=== PATIENT | female | born 1950 | race Caucasian/White ===

== ENCOUNTER 2020-01-11 17:14 | Emergency (ER) | payer MEDICARE, OTHER ==
[2020-01-11] MEDS ORDERED: Aspirin 81 MG Tab.Chew PO ONE (17:45)
[2020-01-11] MEDS: Aspirin 81 MG Tab.Chew ONE (17:45)
--- NOTE | 2020-01-11 18:10 | EDM.PDOC ---
ED HPI GENERAL MEDICAL PROBLEM - General Chief Complaint: Chest Pain Stated Complaint: CHEST PAIN Time Seen by Provider: 01/11/20 17:45 Source of Information: Reports: Patient History Limitations: Reports: No Limitations - History of Present Illness INITIAL COMMENTS - FREE TEXT/NARRATIVE: 69-year-old female presents emergency room for evaluation of chest pain. Onset of symptoms was approximately 24 hours ago. Pain began at rest. She reports the pain as sharp just to the left side of her chest and radiates to her shoulder blade. She denies any arm pain or numbness or tingling. She denies shortness of breath she denies any dyspnea, dyspnea on exertion or diaphoresis. She denies any neck pain, no nausea or vomiting or abdominal complaints. She does have a history of diabetes insulin-dependent since the age of 48 she also has a history coronary artery disease with a bypass graft 3 vessel in August 2015. She has had some previous claudication complaints in the past which is been further worked up for peripheral vascular disease which was negative. She is a pack-a-day smoker 50-60 pack year smoker. He takes a cholesterol medication and hypertension medication. Her symptoms have not worsened over the last 24 hours. She rates the pain 5 out of 10. She is not requesting medication for the pain in fact refuses anything. Her EKG showed a normal sinus rhythm with possible anterior septal infarct age indeterminate there is no ST elevation. Onset Date: 01/10/20 Onset Time: 20:00 Duration: Hour(s):, Constant Location: Reports: Chest Quality: Reports: Sharp Severity: Moderate Improves with: Reports: None Worsens with: Reports: None Associated Symptoms: Reports: Chest Pain. 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 Left Chest Pain Score (Numeric/FACES): 5 - Related Data Allergies Allergy/AdvReac Type Severity Reaction Status Date / Time ibuprofen [From Motrin IB] Allergy Hives Verified 01/11/20 17:22 triamcinolone acetonide Allergy Blisters Verified 01/11/20 17:22 [From Kenalog] metals Allergy SKIN Uncoded 01/11/20 17:22 BREAKDOWN Home Meds: Home Meds Arginine [l-Arginine] 500 mg PO DAILY 08/20/13 [History] Aspirin [Adult Low Dose Aspirin EC] 81 mg PO DAILY 08/20/13 [History] Calcium Carb & Citrate/Vit D3 [Calcium + Vitamin D3 Caplet] 2 each PO DAILY 08/20/13 [History] Cyclobenzaprine [Flexeril] 20 mg PO BEDTIME 08/20/13 [History] Docusate Sodium 2 cap PO DAILY 08/20/13 [History] Insulin Glargine,Hum.Rec.Anlog [Lantus Solostar] 10 units SUBCUT BID 08/20/13 [History] Insulin Lispro [Humalog] SUBCUT ASDIRECTED 08/20/13 [History] Insulin Regular, Human [HumuLIN R] 3 units SUBCUT DAILY 08/20/13 [History] Lactobacillus Acidophilus [Acidophilus Lactobacillus] 1 cap PO DAILY 08/20/13 [History] Melatonin/Pyridoxine HCl (B6) [Melatonin 10 mg Tablet] 20 mg PO BEDTIME 08/20/13 [History] Multivit-Min/FA/Lycopen/Lutein [Certavite Sr-Antioxidant Tab] 1 tab PO DAILY 08/20/13 [History] atorvaSTATin [Lipitor] 20 mg PO BEDTIME 08/20/13 [History] Aspirin/Calcium Carbonate/Mag [Aspirin Buffered 325 MG Tablet] 325 mg PO QAM 01/11/20 [History] Biotin 1,000 mcg PO DAILY 01/11/20 [History] ED ROS GENERAL - Review of Systems Review Of Systems: See Below Constitutional: Denies: Fever, Night Sweats, Diaphoresis HEENT: Reports: No Symptoms Respiratory: Denies: Shortness of Breath, Wheezing, Pleuritic Chest Pain Cardiovascular: Reports: Chest Pain. Denies: Dyspnea on Exertion, Palpitations Endocrine: Reports: High Glucose GI/Abdominal: Reports: No Symptoms : Reports: No Symptoms Musculoskeletal: Reports: Shoulder Pain (left shoulder) Skin: Reports: No Symptoms Neurological: Reports: No Symptoms Psychiatric: Reports: No Symptoms Hematologic/Lymphatic: Reports: No Symptoms Immunologic: Reports: No Symptoms ED EXAM, GENERAL - Physical Exam Exam: See Below Exam Limited By: No Limitations General Appearance: Alert, No Apparent Distress, Thin Eye Exam: Bilateral Eye: EOMI, PERRL (Pupils equal) Ears: Hearing Grossly Normal Throat/Mouth: Normal Inspection, Normal Oropharynx, Normal Voice, No Airway Compromise Head: Atraumatic, Normocephalic Neck: Normal Inspection, Supple, Non-Tender, Full Range of Motion Respiratory/Chest: No Respiratory Distress, Lungs Clear, Normal Breath Sounds Cardiovascular: Normal Peripheral Pulses, Regular Rate, Rhythm Peripheral Pulses: 1+: Carotid (L), Carotid (R), Radial (L), Radial (R), Dorsalis Pedis (L), Dorsalis Pedis (R) GI/Abdominal: Soft, Non-Tender Back Exam: Normal Inspection, Full Range of Motion Extremities: Normal Inspection, Normal Range of Motion, No Pedal Edema Neurological: Alert, Oriented, No Motor/Sensory Deficits Psychiatric: Normal Affect, Normal Mood Skin Exam: Warm, Dry, Intact, Normal Color, No Rash Lymphatic: No Adenopathy EKG INTERPRETATION EKG Date: 01/11/20 Time: 17:25 Rhythm: NSR Rate (Beats/Min): 89 [place]: Normal P-Wave: Present QRS: Normal ST-T: Normal QT: Normal Comparison: NA - No Prior EKG EKG Interpretation Comments: Normal sinus rhythm possible left atrial enlargement Anteroseptal infarct, age undetermined Abnormal ECG Course - Vital Signs Last Recorded V/S: Last Vital Signs Temp 98.9 F 01/11/20 17:18 Pulse 79 01/11/20 18:10 Resp 18 01/11/20 17:18 BP 186/70 H 01/11/20 18:10 Pulse Ox 96 01/11/20 17:18 - Orders/Labs/Meds Orders: Active Orders 24 hr Category Date Time Status Chest 1V Frontal [CR] Routine Exams 01/11/20 17:30 Ordered Labs: Laboratory Tests 01/11/20 01/11/20 Range/Units 17:40 17:40 WBC 7.41 (5.00-10.00) 10^3/uL RBC 4.49 (3.80-5.50) 10^6/uL Hgb 13.8 (12.0-16.0) g/dL Hct 41.7 (37.0-47.0) % MCV 92.9 H (82.0-92.0) fL MCH 30.7 (27.0-31.0) pg MCHC 33.1 (32.0-36.0) g/dL RDW 13.7 (11.5-14.5) % Plt Count 356 D (150-400) 10^3/uL MPV 10.1 (7.4-10.4) fL Immature Gran % (Auto) 0.1 (0.0-5.0) % Neut % (Auto) 65.4 (50.0-70.0) % Lymph % (Auto) 21.7 (20.0-40.0) % [place] % (Auto) 10.3 H (2.0-8.0) % Eos % (Auto) 1.8 (1.0-3.0) % Baso % (Auto) 0.7 (0.0-1.0) % Neut # (Auto) 4.85 (2.50-7.00) 10^3/uL Lymph # (Auto) 1.61 (1.00-4.00) 10^3/uL [place] # (Auto) 0.76 (0.10-0.80) 10^3/uL Eos # (Auto) 0.13 (0.10-0.30) 10^3/uL Baso # (Auto) 0.05 (0.00-0.10) 10^3/uL Immature Gran # (Auto) 0.01 (0.00-0.50) 10^3/uL Sodium 136 (136-145) mmol/L Potassium 4.4 (3.3-5.3) mmol/L Chloride 100 (98-115) mmol/L Carbon Dioxide 27.3 (21.0-32.0) mmol/L Anion Gap 13.1 (5-15) mmol/L BUN 15 (6-25) mg/dL Creatinine 0.90 (0.51-1.17) mg/dL Est Cr Clr Drug Dosing 55.75 mL/min Estimated GFR (MDRD) > 60 mL/min Glucose 193 H (75 - 99) mg/dL Calcium 8.6 L (8.7-10.3) mg/dL Troponin I 0.06 (0.00-0.070) ng/mL Meds: Medications Discontinued Medications Generic Name Dose Route Start Last Admin Trade Name Freq PRN Reason Stop Dose Admin Aspirin Confirm 01/11/20 17:45 01/11/20 17:45 Aspirin Administered 01/11/20 17:46 324 mg Dose Administration 324 mg .ROUTE .STK-MED ONE - Re-Assessments/Exams Free Text/Narrative Re-Assessment/Exam: 01/11/20 18:14 Patient states that she is comfortable. O2 saturations are stable. She denies need for any pain medication. She is nontoxic appearing, she is not diaphoretic Departure - Departure Time of Disposition: 18:36 Disposition: Home, Self-Care 01 Condition: Good Clinical Impression: Nonspecific chest pain, Intercostal muscle pain Instructions: Nonspecific Chest Pain, Adult Referrals: Leroy Rivera [employer] SPECIALIST [Primary Care Provider] - Forms: ED Department Discharge Sepsis Event Note (ED) - Evaluation Sepsis Screening Result: No Definite Risk - Focused Exam Vital Signs: Vital Signs Temp Pulse Resp BP Pulse Ox 01/11/20 18:10 79 186/70 H 01/11/20 17:50 81 177/68 H 01/11/20 17:30 82 176/85 H 01/11/20 17:18 98.9 F 96 18 217/82 H 96 - My Orders Last 24 Hours: My Active Orders 01/11/20 17:30 Chest 1V Frontal [CR] Routine - Assessment/Plan Last 24 Hours: My Active Orders 01/11/20 17:30 Chest 1V Frontal [CR] Routine Assessment:: Nonspecific chest pain, negative cardiac troponin Possible intercostal muscle strain History of coronary artery disease status post three-vessel CABG bypass Insulin-dependent type 2 diabetes. Tobacco dependence Plan: Follow-up with your primary care within 72 hours Return to the emergency room if chest pain worsens, diaphoresis,Shortness of breath, neck pain, nausea vomiting or abdominal pain occur. Resume as instructed.
[2020-01-11 18:22] LABS: ANION GAP 13.1 mmol/L (5-15); CHLORIDE,CL 100 mmol/L (98-115); SODIUM,NA 136 mmol/L (136-145)
--- NOTE | 2020-01-11 18:41 | CR ---
[id number] RAD/RAD Chest PA or AP 1V EXAM: RAD Chest PA or AP 1V INDICATION: CHEST PAIN. COMPARISON: Chest CT from 2009. DISCUSSION: Cardiomediastinal silhouette is normal in size and contour. Bilateral symmetric lung hyperinflation, nonspecific. No infiltrate, effusion, pneumothorax, or edema. Median sternotomy. IMPRESSION: No acute findings. Other findings are described above. Kirt Cherry MD 01/11/20 [id number] Thank you for allowing us to participate in the care of your patient.
== END 2020-01-11 18:45 | disposition home or self-care (01) ==
LOC: KA.ED 17:14
DX: R07.82 Intercostal pain (principal); M25.512 Pain in left shoulder; Z88.6 Allergy status to analgesic agent; Z91.048 Other nonmedicinal substance allergy status; Z79.82 Long term (current) use of aspirin; Z79.899 Other long term (current) drug therapy
CPT/HCPCS: 71045; 80048; 84484; 85025; 93005; 99285; A9270; 99284

== ENCOUNTER 2020-08-21 06:30 | Day surgery (SDC) | payer MEDICARE, OTHER ==
[2020-08-21] MEDS: Glucagon,Human Recombinant 1 MG Vial IM ONE (06:30)
[2020-08-21] MEDS ORDERED: Midazolam 1 MG/ML 2 ML SDV IV ONE (06:31)
[2020-08-21] MEDS ORDERED: Propofol 200 MG/20 ML SDV IV ONE (06:31)
[2020-08-21] MEDS: Dextrose 5%-0.45% NaCl 1,000 ML IV SCH (06:50)
[2020-08-21] MEDS ORDERED: Sodium Chloride 0.9% 10 ML Syringe FLUSH PRN (07:00)
[2020-08-21] MEDS ORDERED: Propofol 200 MG/20 ML SDV ONE (07:49)
[2020-08-21] MEDS ORDERED: Midazolam 1 MG/ML 2 ML SDV ONE (07:49)
[2020-08-21] MEDS: Sodium Chloride 0.9% 1,000 ML IV SCH (08:00)
--- NOTE | 2020-08-21 09:10 | PCM.PRNOTE ---
- Free Text/Narrative Note: PROCEDURE PERFORMED: Colonoscopy with biopsy PRE-PROCEDURE DIAGNOSIS/INDICATION FOR PROCEDURE: Rectal bleeding, change in bowel movements with recurrent diarrhea, last colonoscopy 2013 normal CONSENT: Informed consent was obtained prior to the procedure after discussion of the risks (including pain, bleeding, infection, perforation, missed polyps, inability to completely remove polyps or complete procedure necessitating repeat colonoscopy, adverse reaction to anesthesia, cardiovascular event), benefits and alternatives and expected outcomes. The patient expressed understanding and wished to proceed. Verbal consent given and consent form signed. PROCEDURAL PAUSE: Completed SEDATION: Per anesthesia DESCRIPTION OF PROCEDURE: Patient was placed in the left lateral decubitus position. After adequate sedation and anesthetic was administered, a rectal exam was performed revealing no abnormalities. A lubricated Olympus Video Colonoscope was inserted into the rectum and air insufflation was performed. The colonoscope was advanced through the rectum, sigmoid, descending, transverse, and ascending colon without difficulties. The cecum was reached and the ileocecal valve as well as the appendiceal orifice were identified and pictorially documented. After adequate visualization of the cecum, the scope was withdrawn, giving 360-degree views of the colonic mucosa and retroflexion was performed in the rectum with the following findings noted: Ileocecal valve: Normal Cecum: Normal Ascending colon: Normal Hepatic flexure: Normal Transverse colon: Normal Splenic flexure: Normal Descending colon: Normal Sigmoid colon: Normal Rectum: Mild internal hemorrhoids without active bleeding Random biopsies taken of the ascending and descending colon to further evaluate recurrent diarrhea. The scope was straightened, air suction performed, and the scope withdrawn without complication. Preparation adequacy [place] Bowel Score 9/9. IMPRESSION: Colonoscopy performed revealing: - No mucosal abnormalities, but biopsies taken of ascending and descending colon to evaluate for microscopic colitis, pathology now pending - Mild internal hemorrhoids PLAN: Follow-up with myself at [facility] in 7-10 days to discuss biopsy results and further evaluation and management of bowel changes.
== END 2020-08-21 10:02 | disposition home or self-care (01) ==
LOC: KA.SDS 06:30
PROVIDERS: ATTEND Family Medicine
DX: R19.7 Diarrhea, unspecified (principal); K64.8 Other hemorrhoids; I10 Essential (primary) hypertension; I25.10 Atherosclerotic heart disease of native coronary artery without angina pectoris; E78.2 Mixed hyperlipidemia; E10.51 Type 1 diabetes mellitus with diabetic peripheral angiopathy without gangrene; E10.43 Type 1 diabetes mellitus with diabetic autonomic (poly)neuropathy; F17.210 Nicotine dependence, cigarettes, uncomplicated; Z95.1 Presence of aortocoronary bypass graft; Z79.899 Other long term (current) drug therapy; Z88.8 Allergy status to other drugs, medicaments and biological substances; Z98.890 Other specified postprocedural states
CPT/HCPCS: 00812; 82962; 88305; J1610; J2250; J2704; J7030; J7042

== ENCOUNTER 2022-01-28 16:03 | Inpatient (IN) | payer MEDICARE, OTHER ==
[2022-01-28] MEDS ORDERED: Diltiazem 25 MG/5 ML SDV IVPUSH ONE ×2 (16:56→20:14)
[2022-01-28 17:15] LABS: ANION GAP 15.6 mmol/L (5-15); CHLORIDE,CL 93 mmol/L (98-107); SODIUM,NA 130 mmol/L (136-145)
[2022-01-28 17:16] LABS: ESTIMATED GFR 63 mL/min (>=60)
[2022-01-28] MEDS: Sodium Chloride 0.9% 10 ML Syringe FLUSH PRN ×2 (17:18→20:39)
[2022-01-28] MEDS ORDERED: cefTRIAXone 1 GM Vial IVPUSH ONE (19:48)
[2022-01-28] MEDS ORDERED: Azithromycin 500 MG in Sodium Chloride 0.9% 250 ML IV SCH (20:00)
[2022-01-28] MEDS ORDERED: Sodium Chloride 0.9% 1,000 ML IV ONE (23:02)
[2022-01-28] MEDS ORDERED: Glucagon,Human Recombinant 1 MG Vial IM PRN (23:05)
[2022-01-28] MEDS ORDERED: 50% Dextrose in Water 50 ML Syringe IVPUSH PRN (23:05)
[2022-01-28] MEDS ORDERED: Sodium Chloride 0.9% 250 ML IV SCH (23:15)
[2022-01-28] MEDS ORDERED: Acetaminophen 325 MG Tab PO PRN (23:41)
[2022-01-28] MEDS: guaiFENesin/Dextromethorphan 100-10 MG/5 ML Soln 5 ML Cup PO PRN (23:43)
[2022-01-28] MEDS ORDERED: Sodium Chloride 0.9% 1,000 ML IV SCH (23:45)
[2022-01-29] MEDS: guaiFENesin/Dextromethorphan 100-10 MG/5 ML Soln 5 ML Cup PO PRN ×2 (04:39→16:13)
[2022-01-29 08:32] LABS: ANION GAP 9.7 mmol/L (5-15)
[2022-01-29] MEDS: Insulin Lispro 100 Unit/ML 3 ML KwikPen SUBCUT SCH ×3 (09:31→18:26)
[2022-01-29] MEDS ORDERED: Glucagon,Human Recombinant 1 MG Vial IM PRN (09:46)
[2022-01-29] MEDS ORDERED: 50% Dextrose in Water 50 ML Syringe IVPUSH PRN (09:46)
[2022-01-29] MEDS ORDERED: Insulin Glargine,Hum.Rec.Anlog 100 UNIT/ML 3 ML Pen SUBCUT SCH (10:00)
[2022-01-29] MEDS ORDERED: Insulin Lispro 100 Unit/ML 3 ML KwikPen SUBCUT SCH (10:00)
[2022-01-29] MEDS ORDERED: Albuterol/Ipratropium 3.0-0.5 MG/3 ML Neb Soln INH PRN (11:02)
[2022-01-29] MEDS ORDERED: Albuterol 8 GM Inhaler INH PRN (11:02)
[2022-01-29] MEDS ORDERED: Acetaminophen/HYDROcodone 325-5 MG Tab PO PRN (11:02)
[2022-01-29] MEDS: LANTUS 100 UNIT/ML SUBCUT SCH ×2 (11:07→20:18)
[2022-01-29] MEDS: Insulin Regular, Human 100 Units/ML 10 ML Vial SUBCUT SCH ×2 (11:09→11:42)
[2022-01-29] MEDS: Lactobacillus Rhamnosus GG (Probiotic) Cap PO SCH (11:44)
[2022-01-29] MEDS: guaiFENesin 600 MG Tab.ER PO SCH ×2 (11:44→20:22)
[2022-01-29] MEDS: Apixaban 5 MG Tab PO SCH ×2 (11:44→20:23)
[2022-01-29] MEDS: Cyclobenzaprine 10 MG Tab PO PRN (11:45)
[2022-01-29] MEDS: Multivitamins with Minerals/Iron/Folic Acid/Lycopene Tab PO SCH (11:45)
[2022-01-29] MEDS: Docusate Sodium 100 MG Cap PO SCH ×2 (11:45→20:22)
[2022-01-29] MEDS: Carvedilol 6.25 MG Tab PO SCH ×2 (11:52→18:28)
[2022-01-29] MEDS: Lisinopril 10 MG Tab PO SCH (11:53)
[2022-01-29] MEDS: Pregabalin 100 MG Cap PO SCH ×2 (13:48→20:23)
[2022-01-29] MEDS: Omeprazole 20 MG Cap.CR PO SCH (18:28)
[2022-01-29] MEDS: Azithromycin 500 MG in Sodium Chloride 0.9% 250 ML IV SCH (20:16)
[2022-01-29] MEDS: cefTRIAXone 1 GM Vial IVPUSH SCH (20:18)
[2022-01-29] MEDS: atorvaSTATin 10 MG Tab PO SCH (20:22)
[2022-01-30 08:11] LABS: ANION GAP 10.3 mmol/L (5-15)
[2022-01-30] MEDS: Insulin Lispro 100 Unit/ML 3 ML KwikPen SUBCUT SCH ×3 (08:20→17:54)
[2022-01-30] MEDS: Apixaban 5 MG Tab PO SCH ×2 (09:17→20:07)
[2022-01-30] MEDS: Pregabalin 100 MG Cap PO SCH ×3 (09:18→20:07)
[2022-01-30] MEDS: Lactobacillus Rhamnosus GG (Probiotic) Cap PO SCH (09:18)
[2022-01-30] MEDS: guaiFENesin 600 MG Tab.ER PO SCH ×2 (09:18→20:07)
[2022-01-30] MEDS: Docusate Sodium 100 MG Cap PO SCH ×2 (09:18→20:07)
[2022-01-30] MEDS: Omeprazole 20 MG Cap.CR PO SCH ×2 (09:19→17:54)
[2022-01-30] MEDS: Lisinopril 10 MG Tab PO SCH (09:19)
[2022-01-30] MEDS: Multivitamins with Minerals/Iron/Folic Acid/Lycopene Tab PO SCH (09:19)
[2022-01-30] MEDS: LANTUS 100 UNIT/ML SUBCUT SCH ×2 (09:20→20:38)
[2022-01-30] MEDS: Insulin Regular, Human 100 Units/ML 10 ML Vial SUBCUT SCH (09:21)
[2022-01-30] MEDS: Carvedilol 6.25 MG Tab PO SCH ×2 (10:03→17:53)
[2022-01-30] MEDS ORDERED: Sodium Chloride 0.9% 50 ML IV PRN (20:00)
[2022-01-30] MEDS: cefTRIAXone 1 GM Vial IVPUSH SCH (20:06)
[2022-01-30] MEDS: atorvaSTATin 10 MG Tab PO SCH (20:07)
[2022-01-30] MEDS: Azithromycin 500 MG in Sodium Chloride 0.9% 250 ML IV SCH (20:07)
[2022-01-31] MEDS ORDERED: diphenhydrAMINE 25 MG Cap PO ONE ×2 (06:19→22:53)
[2022-01-31] MEDS ORDERED: diphenhydrAMINE 25 MG Cap PO PRN (06:21)
[2022-01-31 08:15] LABS: ANION GAP 10.8 mmol/L (5-15)
[2022-01-31] MEDS: Lisinopril 10 MG Tab PO SCH (10:11)
[2022-01-31] MEDS: Pregabalin 100 MG Cap PO SCH ×3 (10:11→21:01)
[2022-01-31] MEDS: guaiFENesin 600 MG Tab.ER PO SCH ×2 (10:12→21:00)
[2022-01-31] MEDS: Omeprazole 20 MG Cap.CR PO SCH ×2 (10:14→18:46)
[2022-01-31] MEDS: Insulin Lispro 100 Unit/ML 3 ML KwikPen SUBCUT SCH ×3 (10:20→18:47)
[2022-01-31] MEDS: Lactobacillus Rhamnosus GG (Probiotic) Cap PO SCH (10:21)
[2022-01-31] MEDS: Docusate Sodium 100 MG Cap PO SCH ×2 (10:21→21:01)
[2022-01-31] MEDS: Insulin Regular, Human 100 Units/ML 10 ML Vial SUBCUT SCH (10:21)
[2022-01-31] MEDS: LANTUS 100 UNIT/ML SUBCUT SCH ×2 (10:21→21:01)
[2022-01-31] MEDS: Multivitamins with Minerals/Iron/Folic Acid/Lycopene Tab PO SCH (10:21)
[2022-01-31] MEDS: Apixaban 5 MG Tab PO SCH ×2 (11:02→21:00)
[2022-01-31] MEDS: Carvedilol 6.25 MG Tab PO SCH ×2 (11:04→18:40)
[2022-01-31] MEDS ORDERED: Phenol 1.4% Oral Spray 177 ML Bottle MUCMEM PRN (12:18)
[2022-01-31] MEDS: Piperacillin/Tazobactam 4.5 GM in Sodium Chloride 0.9% 100 ML IV SCH ×3 (12:50→22:36)
[2022-01-31] MEDS ORDERED: Furosemide 40 MG/4 ML VIAL IVPUSH ONE (13:11)
[2022-01-31] MEDS: Sodium Chloride 0.9% 10 ML Syringe FLUSH PRN (13:37)
[2022-01-31 15:39] LABS: RESPIRATORY SYNCYTIAL VIR NAA NEGATIVE (NEGATIVE)
[2022-01-31 15:40] LABS: CORONAVIRUS COVID-19 NAA NEGATIVE (NEGATIVE)
[2022-01-31 16:21] LABS: BASE EXCESS ARTERIAL -1 mmol/L (-2-3); BICARBONATE,ARTERIAL 21.2 mmol/L (22-26); O2 DELIVERY DEVICE NASAL CANNULA; O2 SATURATION ARTERIAL 95 % (95-98); PCO2 ARTERIAL 27 mmHG (35-45); PO2 ARTERIAL 67 mmHG (80-105)
[2022-01-31] MEDS: Sodium Chloride 0.9% 1,000 ML IV SCH ×2 (17:30→21:01)
[2022-01-31] MEDS: atorvaSTATin 10 MG Tab PO SCH (21:01)
[2022-01-31] MEDS: Cyclobenzaprine 10 MG Tab PO PRN (22:58)
[2022-02-01] MEDS: Sodium Chloride 0.9% 1,000 ML IV SCH (01:59)
[2022-02-01 02:15] LABS: ANION GAP 15.2 mmol/L (5-15)
[2022-02-01] MEDS ORDERED: Magnesium Sulfate/Water 2 GM in Premix Bag 1 BAG IV ONE (02:49)
[2022-02-01] MEDS ORDERED: Calcium Gluconate 1 GM in Sodium Chloride 0.9% 100 ML IV ONE (04:17)
[2022-02-01] MEDS ORDERED: Metoprolol Tartrate 25 MG Tab PO ONE (04:45)
[2022-02-01] MEDS ORDERED: Calcium Gluconate 1 GM in Sodium Chloride 0.9% 100 ML IV SCH (05:00)
[2022-02-01] MEDS: Piperacillin/Tazobactam 4.5 GM in Sodium Chloride 0.9% 100 ML IV SCH (05:26)
[2022-02-01] MEDS: Insulin Lispro 100 Unit/ML 3 ML KwikPen SUBCUT SCH ×2 (08:21→12:27)
[2022-02-01] MEDS: Omeprazole 20 MG Cap.CR PO SCH (08:21)
[2022-02-01] MEDS: LANTUS 100 UNIT/ML SUBCUT SCH (08:24)
[2022-02-01] MEDS: Multivitamins with Minerals/Iron/Folic Acid/Lycopene Tab PO SCH (08:27)
[2022-02-01] MEDS: Lactobacillus Rhamnosus GG (Probiotic) Cap PO SCH (08:28)
[2022-02-01] MEDS: Docusate Sodium 100 MG Cap PO SCH (08:28)
[2022-02-01] MEDS: Pregabalin 100 MG Cap PO SCH ×2 (08:28→14:16)
[2022-02-01] MEDS: guaiFENesin 600 MG Tab.ER PO SCH (08:28)
[2022-02-01] MEDS: Apixaban 5 MG Tab PO SCH (08:29)
[2022-02-01] MEDS: Insulin Regular, Human 100 Units/ML 10 ML Vial SUBCUT SCH (08:32)
[2022-02-01 10:07] LABS: ANION GAP 16.5 mmol/L (5-15)
[2022-02-01] MEDS ORDERED: Sodium Chloride 0.9% 1,000 ML IV SCH (10:45)
[2022-02-01] MEDS ORDERED: Piperacillin/Tazobactam 4.5 GM in Sodium Chloride 0.9% 100 ML IV SCH (11:30)
[2022-02-01] MEDS ORDERED: Piperacillin/Tazobactam/Dext 3.375 GM in Premix Bag 1 BAG IV SCH (11:30)
[2022-02-01 11:53] LABS: O2 DELIVERY DEVICE NASAL CANNULA
[2022-02-01 11:56] LABS: BASE EXCESS ARTERIAL -5 mmol/L (-2-3); BICARBONATE,ARTERIAL 18.1 mmol/L (22-26); O2 SATURATION ARTERIAL 97 % (95-98); PCO2 ARTERIAL 28 mmHG (35-45); PO2 ARTERIAL 86 mmHG (80-105)
[2022-02-01] MEDS ORDERED: diphenhydrAMINE 25 MG Cap PO ONE (12:10)
[2022-02-01] MEDS ORDERED: Metoprolol Tartrate 25 MG Tab PO SCH (21:00)
== END 2022-02-01 14:55 | DRG 193 ==
LOC: KA.ED 16:03 → KA.MS 21:28
PROVIDERS: ADMIT Student in an Organized Health Care Education/Training Program; ATTEND Student in an Organized Health Care Education/Training Program
DX: J18.9 Pneumonia, unspecified organism (principal); D72.829 Elevated white blood cell count, unspecified; R79.1 Abnormal coagulation profile; A41.9 Sepsis, unspecified organism; R79.82 Elevated C-reactive protein (CRP); E87.2 Acidosis; E87.1 Hypo-osmolality and hyponatremia; J44.1 Chronic obstructive pulmonary disease with (acute) exacerbation; E78.2 Mixed hyperlipidemia; F17.210 Nicotine dependence, cigarettes, uncomplicated; Z66 Do not resuscitate; Z20.822 Contact with and (suspected) exposure to COVID-19; M48.061 Spinal stenosis, lumbar region without neurogenic claudication; I25.10 Atherosclerotic heart disease of native coronary artery without angina pectoris; G89.29 Other chronic pain; M54.2 Cervicalgia; K21.9 Gastro-esophageal reflux disease without esophagitis; K59.00 Constipation, unspecified; H54.7 Unspecified visual loss; E78.00 Pure hypercholesterolemia, unspecified; K59.09 Other constipation; M54.50 Low back pain, unspecified; R79.89 Other specified abnormal findings of blood chemistry; E87.8 Other disorders of electrolyte and fluid balance, not elsewhere classified; E10.9 Type 1 diabetes mellitus without complications; I48.91 Unspecified atrial fibrillation; M54.9 Dorsalgia, unspecified; M79.7 Fibromyalgia; Z98.49 Cataract extraction status, unspecified eye; Z88.6 Allergy status to analgesic agent; Z79.4 Long term (current) use of insulin; Z79.82 Long term (current) use of aspirin; Z79.899 Other long term (current) drug therapy; Z90.49 Acquired absence of other specified parts of digestive tract; Z95.1 Presence of aortocoronary bypass graft; Z88.8 Allergy status to other drugs, medicaments and biological substances
CPT/HCPCS: 0241U; 36415; 36600; 71045; 71275; 80048; 80053; 80202; 82803; 82947; 83605; 83735; 83880; 84145; 84443; 84484; 85025; 85379; 86140; 87040; 87070; 87081; 87205; 87430; 93005; 93010; 96365; 96375; 96376; 99284; 99285-25; A9270-GY; J0456; J0610; J0696; J1815-GY; J1940; J2543; J3370; J3475; J3490; J7030; J7050; J7620-GY; U0002

== ENCOUNTER 2022-02-17 10:25 | Emergency (ER) | payer MEDICARE, OTHER | END 2022-02-17 12:00 | disposition home or self-care (01) | LOC: KA.ED 10:25 | DX: S92.244A Nondisplaced fracture of medial cuneiform of right foot, initial encounter for closed fracture (principal); I25.10 Atherosclerotic heart disease of native coronary artery without angina pectoris; E78.00 Pure hypercholesterolemia, unspecified; J44.9 Chronic obstructive pulmonary disease, unspecified; M79.7 Fibromyalgia; E10.9 Type 1 diabetes mellitus without complications; Z72.0 Tobacco use; Z91.048 Other nonmedicinal substance allergy status; Z88.8 Allergy status to other drugs, medicaments and biological substances; Z88.6 Allergy status to analgesic agent; Z79.82 Long term (current) use of aspirin; Z79.01 Long term (current) use of anticoagulants; Z79.899 Other long term (current) drug therapy; X50.1XXA Overexertion from prolonged static or awkward postures, initial encounter; Y93.01 Activity, walking, marching and hiking | CPT/HCPCS: 73630-RT; 99283 ==

== ENCOUNTER 2022-08-14 17:10 | Emergency (ER) | payer MEDICARE, OTHER ==
[2022-08-14] MEDS ORDERED: Sodium Chloride 0.9% 10 ML Syringe FLUSH PRN (17:13)
[2022-08-14] MEDS: Sodium Chloride 0.9% 1,000 ML IV ONE ×2 (17:38→18:40)
[2022-08-14 18:11] LABS: ANION GAP 19.3 mmol/L (5-15)
[2022-08-14 18:44] LABS: CORONAVIRUS COVID-19 NAA NEGATIVE (NEGATIVE); RESPIRATORY SYNCYTIAL VIR NAA NEGATIVE (NEGATIVE)
[2022-08-14] MEDS: diphenhydrAMINE 50 MG/ML SDV IVPUSH ONE (18:53)
[2022-08-14] MEDS: Insulin Regular, Human 100 Units/ML 10 ML Vial ONE (19:47)
[2022-08-14] MEDS: Sodium Chloride 0.9% 1,000 ML ONE (19:49)
[2022-08-14] MEDS: Sodium Chloride 0.9% 1,000 ML IV SCH (20:20)
[2022-08-14 22:39] VITALS: BP 113/41; PULSE 108
== END 2022-08-14 20:50 ==
LOC: KA.ED 17:10
DX: K56.7 Ileus, unspecified (principal); N17.9 Acute kidney failure, unspecified; E10.10 Type 1 diabetes mellitus with ketoacidosis without coma; E87.1 Hypo-osmolality and hyponatremia; D72.829 Elevated white blood cell count, unspecified; I48.91 Unspecified atrial fibrillation; I25.10 Atherosclerotic heart disease of native coronary artery without angina pectoris; E78.00 Pure hypercholesterolemia, unspecified; J44.9 Chronic obstructive pulmonary disease, unspecified; E78.5 Hyperlipidemia, unspecified; Z91.048 Other nonmedicinal substance allergy status; Z88.8 Allergy status to other drugs, medicaments and biological substances; Z79.4 Long term (current) use of insulin; Z79.899 Other long term (current) drug therapy; Z79.01 Long term (current) use of anticoagulants; Z20.822 Contact with and (suspected) exposure to COVID-19
CPT/HCPCS: 0241U; 36415; 71045; 80053; 81001; 82947; 83605; 84484; 85025; 87040; 87186; 96361; 96374; 99285-25; A9270-GY; J1200; J3490; J7030

== ENCOUNTER 2022-08-26 10:39 | Inpatient (IN) | payer MEDICARE, OTHER ==
[2022-08-27] MEDS ORDERED: Diclofenac Sodium 1% Gel 100 GM Tube TOP PRN (14:24)
[2022-08-27] MEDS ORDERED: Mupirocin Oint 22 GM Tube TOP PRN (14:24)
[2022-08-27] MEDS ORDERED: Albuterol 8 GM Inhaler INH PRN (14:24)
[2022-08-27] MEDS ORDERED: diphenhydrAMINE 50 MG/ML SDV IV PRN (14:24)
[2022-08-27] MEDS ORDERED: Docusate Sodium 100 MG Cap PO PRN (14:37)
[2022-08-27] MEDS ORDERED: Magnesium Hydroxide 400 MG/5 ML Susp 30 ML Cup PO PRN (14:37)
[2022-08-27] MEDS ORDERED: Polyethylene Glycol 3350 Powder 17 GM Packet PO PRN (14:37)
[2022-08-27] MEDS: cefTRIAXone 2 GM Vial IVPUSH SCH (15:23)
[2022-08-27] MEDS ORDERED: Insulin Lispro 100 Unit/ML 3 ML KwikPen SUBCUT SCH (17:00)
[2022-08-27] MEDS: Insulin Lispro 100 Unit/ML 3 ML KwikPen SUBCUT SCH ×2 (18:35→21:29)
[2022-08-27] MEDS: Insulin Glargine,Hum.Rec.Anlog 100 UNIT/ML 3 ML Pen SUBCUT SCH (20:12)
[2022-08-27] MEDS: Metoprolol Succinate 50 MG Tab.ER PO SCH (20:30)
[2022-08-27] MEDS: Diltiazem IR 30 MG Tab PO SCH (20:33)
[2022-08-27] MEDS: Acetaminophen/HYDROcodone 325-5 MG Tab PO PRN (20:41)
[2022-08-27] MEDS: MELATONIN 10 MG PO SCH (20:41)
[2022-08-27] MEDS: Apixaban 5 MG Tab PO SCH (20:41)
[2022-08-27] MEDS ORDERED: Insulin Glargine,Hum.Rec.Anlog 100 UNIT/ML 3 ML Pen SUBCUT SCH (21:00)
[2022-08-28] MEDS: Diltiazem IR 30 MG Tab PO SCH ×3 (01:46→13:50)
[2022-08-28] MEDS: Omeprazole 20 MG Cap.CR PO SCH ×3 (06:13→06:31)
[2022-08-28] MEDS: Vitamin E (dl-alpha-tocopherol acetate) 400 Unit Cap PO SCH (08:04)
[2022-08-28] MEDS: Calcium Citrate/Vitamin D3 315 MG-250 Unit Tab PO SCH (08:04)
[2022-08-28] MEDS: Insulin Glargine,Hum.Rec.Anlog 100 UNIT/ML 3 ML Pen SUBCUT SCH ×2 (08:06→20:57)
[2022-08-28] MEDS: Apixaban 5 MG Tab PO SCH ×2 (08:08→20:57)
[2022-08-28] MEDS: Furosemide 40 MG Tab PO SCH (08:08)
[2022-08-28] MEDS: atorvaSTATin 10 MG Tab PO SCH (08:10)
[2022-08-28] MEDS: Multivitamins with Minerals/Iron/Folic Acid/Lycopene Tab PO SCH (08:14)
[2022-08-28] MEDS: Lidocaine 5% 700 MG Patch TOP SCH (08:15)
[2022-08-28] MEDS: Nicotine 14 MG/24 Hr Patch TOP SCH (08:16)
[2022-08-28] MEDS: Insulin Lispro 100 Unit/ML 3 ML KwikPen SUBCUT SCH ×4 (08:18→21:29)
[2022-08-28] MEDS ORDERED: Lisinopril 5 MG Tab PO SCH (09:00)
[2022-08-28] MEDS ORDERED: CALCIUM CARBONATE PO SCH (09:00)
[2022-08-28] MEDS ORDERED: [UNRECOGNIZED DRUG - OTHER] PO SCH (09:00)
[2022-08-28] MEDS ORDERED: BIOTIN PO SCH (09:00)
[2022-08-28] MEDS ORDERED: Aspirin 325 MG Tab.EC PO SCH (09:00)
[2022-08-28] MEDS ORDERED: Cyanocobalamin (Vitamin B12) 1,000 MCG/ML SDV IM SCH (09:00)
[2022-08-28] MEDS: Remove Patch - NICOTINE TRDERM SCH (09:09)
[2022-08-28] MEDS: Metoprolol Succinate 50 MG Tab.ER PO SCH ×2 (10:16→21:29)
[2022-08-28] MEDS: Acetaminophen/HYDROcodone 325-5 MG Tab PO PRN ×2 (12:54→21:30)
[2022-08-28] MEDS: cefTRIAXone 2 GM Vial IVPUSH SCH (12:55)
[2022-08-28] MEDS: Diltiazem 60 MG Cap.SR PO SCH (20:57)
[2022-08-28] MEDS: diphenhydrAMINE 25 MG Cap PO PRN (20:57)
[2022-08-28] MEDS: MELATONIN 10 MG PO SCH (20:57)
[2022-08-29] MEDS: Omeprazole 20 MG Cap.CR PO SCH ×2 (06:15→06:35)
[2022-08-29] MEDS: Insulin Lispro 100 Unit/ML 3 ML KwikPen SUBCUT SCH ×4 (08:27→22:17)
[2022-08-29] MEDS: Insulin Glargine,Hum.Rec.Anlog 100 UNIT/ML 3 ML Pen SUBCUT SCH ×2 (08:35→22:18)
[2022-08-29] MEDS: Metoprolol Succinate 50 MG Tab.ER PO SCH ×2 (08:37→22:15)
[2022-08-29] MEDS: Multivitamins with Minerals/Iron/Folic Acid/Lycopene Tab PO SCH (08:37)
[2022-08-29] MEDS: atorvaSTATin 10 MG Tab PO SCH (08:38)
[2022-08-29] MEDS: Aspirin 81 MG Tab.EC PO SCH (08:39)
[2022-08-29] MEDS: Furosemide 40 MG Tab PO SCH (08:39)
[2022-08-29] MEDS: Diltiazem 60 MG Cap.SR PO SCH ×2 (08:39→22:15)
[2022-08-29] MEDS: Calcium Citrate/Vitamin D3 315 MG-250 Unit Tab PO SCH (08:39)
[2022-08-29] MEDS: Apixaban 5 MG Tab PO SCH ×2 (08:39→22:14)
[2022-08-29] MEDS: Vitamin E (dl-alpha-tocopherol acetate) 400 Unit Cap PO SCH (08:39)
[2022-08-29] MEDS: Nicotine 14 MG/24 Hr Patch TOP SCH (08:40)
[2022-08-29] MEDS: Lidocaine 5% 700 MG Patch TOP SCH (08:40)
[2022-08-29] MEDS: Remove Patch - NICOTINE TRDERM SCH (08:42)
[2022-08-29] MEDS: Acetaminophen/HYDROcodone 325-5 MG Tab PO PRN ×2 (08:48→22:16)
[2022-08-29] MEDS ORDERED: 50% Dextrose in Water 50 ML Syringe IVPUSH PRN (15:53)
[2022-08-29] MEDS ORDERED: Insulin Lispro 100 Unit/ML 3 ML KwikPen SUBCUT ONE (15:53)
[2022-08-29] MEDS ORDERED: Glucagon,Human Recombinant 1 MG Vial IM PRN (15:53)
[2022-08-29] MEDS: diphenhydrAMINE 25 MG Cap PO PRN (22:14)
[2022-08-29] MEDS: MELATONIN 10 MG PO SCH (22:18)
[2022-08-30] MEDS: Omeprazole 20 MG Cap.CR PO SCH ×2 (06:25→06:37)
[2022-08-30 07:47] LABS: ANION GAP 6.5 mmol/L (5-15)
[2022-08-30] MEDS: Insulin Lispro 100 Unit/ML 3 ML KwikPen SUBCUT SCH ×4 (07:58→20:10)
[2022-08-30] MEDS: Insulin Glargine,Hum.Rec.Anlog 100 UNIT/ML 3 ML Pen SUBCUT SCH ×2 (08:44→20:12)
[2022-08-30] MEDS: atorvaSTATin 10 MG Tab PO SCH (08:50)
[2022-08-30] MEDS: Aspirin 81 MG Tab.EC PO SCH (08:50)
[2022-08-30] MEDS: Calcium Citrate/Vitamin D3 315 MG-250 Unit Tab PO SCH (08:50)
[2022-08-30] MEDS: Metoprolol Succinate 50 MG Tab.ER PO SCH ×2 (08:50→20:11)
[2022-08-30] MEDS: Diltiazem 60 MG Cap.SR PO SCH ×2 (08:51→20:11)
[2022-08-30] MEDS: Apixaban 5 MG Tab PO SCH ×2 (08:51→20:12)
[2022-08-30] MEDS: Multivitamins with Minerals/Iron/Folic Acid/Lycopene Tab PO SCH (08:51)
[2022-08-30] MEDS: Vitamin E (dl-alpha-tocopherol acetate) 400 Unit Cap PO SCH (08:51)
[2022-08-30] MEDS: Furosemide 40 MG Tab PO SCH (08:51)
[2022-08-30] MEDS: Acetaminophen/HYDROcodone 325-5 MG Tab PO PRN ×2 (09:00→19:56)
[2022-08-30] MEDS: Remove Patch - NICOTINE TRDERM SCH (10:30)
[2022-08-30] MEDS: Lidocaine 5% 700 MG Patch TOP SCH (10:36)
[2022-08-30] MEDS: Nicotine 14 MG/24 Hr Patch TOP SCH (10:36)
[2022-08-30] MEDS: MELATONIN 10 MG PO SCH (20:11)
[2022-08-30] MEDS: diphenhydrAMINE 25 MG Cap PO PRN (20:59)
[2022-08-31] MEDS: Omeprazole 20 MG Cap.CR PO SCH ×2 (05:28→06:39)
[2022-08-31] MEDS: Acetaminophen/HYDROcodone 325-5 MG Tab PO PRN ×2 (05:30→20:10)
[2022-08-31] MEDS: Insulin Lispro 100 Unit/ML 3 ML KwikPen SUBCUT SCH ×4 (08:00→21:22)
[2022-08-31] MEDS: Insulin Glargine,Hum.Rec.Anlog 100 UNIT/ML 3 ML Pen SUBCUT SCH ×2 (08:12→20:23)
[2022-08-31] MEDS: Metoprolol Succinate 50 MG Tab.ER PO SCH ×2 (08:13→20:20)
[2022-08-31] MEDS: Vitamin E (dl-alpha-tocopherol acetate) 400 Unit Cap PO SCH (08:14)
[2022-08-31] MEDS: Calcium Citrate/Vitamin D3 315 MG-250 Unit Tab PO SCH (08:14)
[2022-08-31] MEDS: atorvaSTATin 10 MG Tab PO SCH (08:14)
[2022-08-31] MEDS: Apixaban 5 MG Tab PO SCH ×2 (08:14→20:20)
[2022-08-31] MEDS: Aspirin 81 MG Tab.EC PO SCH (08:14)
[2022-08-31] MEDS: Nicotine 14 MG/24 Hr Patch TOP SCH (08:15)
[2022-08-31] MEDS: Furosemide 40 MG Tab PO SCH (08:15)
[2022-08-31] MEDS: Remove Patch - NICOTINE TRDERM SCH (08:15)
[2022-08-31] MEDS: Diltiazem 60 MG Cap.SR PO SCH ×2 (08:15→20:20)
[2022-08-31] MEDS: Lidocaine 5% 700 MG Patch TOP SCH (08:15)
[2022-08-31] MEDS: Multivitamins with Minerals/Iron/Folic Acid/Lycopene Tab PO SCH (08:15)
[2022-08-31] MEDS: MELATONIN 10 MG PO SCH (21:04)
[2022-08-31] MEDS: diphenhydrAMINE 25 MG Cap PO PRN (21:05)
[2022-09-01] MEDS: Omeprazole 20 MG Cap.CR PO SCH (07:39)
[2022-09-01] MEDS: Aspirin 81 MG Tab.EC PO SCH (07:40)
[2022-09-01] MEDS: Diltiazem 60 MG Cap.SR PO SCH ×2 (07:40→20:04)
[2022-09-01] MEDS: Insulin Lispro 100 Unit/ML 3 ML KwikPen SUBCUT SCH ×4 (07:41→22:48)
[2022-09-01] MEDS: Insulin Glargine,Hum.Rec.Anlog 100 UNIT/ML 3 ML Pen SUBCUT SCH ×3 (07:49→20:06)
[2022-09-01] MEDS: Vitamin E (dl-alpha-tocopherol acetate) 400 Unit Cap PO SCH (08:42)
[2022-09-01] MEDS: Furosemide 40 MG Tab PO SCH (08:43)
[2022-09-01] MEDS: atorvaSTATin 10 MG Tab PO SCH (08:43)
[2022-09-01] MEDS: Multivitamins with Minerals/Iron/Folic Acid/Lycopene Tab PO SCH (08:43)
[2022-09-01] MEDS: Apixaban 5 MG Tab PO SCH ×2 (08:44→20:04)
[2022-09-01] MEDS: Calcium Citrate/Vitamin D3 315 MG-250 Unit Tab PO SCH (08:45)
[2022-09-01] MEDS: Metoprolol Succinate 50 MG Tab.ER PO SCH ×2 (08:45→20:04)
[2022-09-01] MEDS: Remove Patch - NICOTINE TRDERM SCH (10:51)
[2022-09-01] MEDS: Lidocaine 5% 700 MG Patch TOP SCH (10:52)
[2022-09-01] MEDS: Nicotine 14 MG/24 Hr Patch TOP SCH (10:52)
[2022-09-01] MEDS: Acetaminophen/HYDROcodone 325-5 MG Tab PO PRN ×2 (13:47→20:00)
[2022-09-01] MEDS ORDERED: Glucagon,Human Recombinant 1 MG Vial IM PRN (15:58)
[2022-09-01] MEDS ORDERED: Insulin Lispro 100 Unit/ML 3 ML KwikPen SUBCUT ONE (15:58)
[2022-09-01] MEDS ORDERED: 50% Dextrose in Water 50 ML Syringe IVPUSH PRN (15:58)
[2022-09-01] MEDS: diphenhydrAMINE 25 MG Cap PO PRN (21:04)
[2022-09-01] MEDS: MELATONIN 10 MG PO SCH (21:10)
[2022-09-02] MEDS: Omeprazole 20 MG Cap.CR PO SCH (06:33)
[2022-09-02 07:31] LABS: ANION GAP 7.3 mmol/L (5-15)
[2022-09-02] MEDS: Furosemide 40 MG Tab PO SCH (08:09)
[2022-09-02] MEDS: Apixaban 5 MG Tab PO SCH ×2 (08:09→20:04)
[2022-09-02] MEDS: Vitamin E (dl-alpha-tocopherol acetate) 400 Unit Cap PO SCH (08:09)
[2022-09-02] MEDS: atorvaSTATin 10 MG Tab PO SCH (08:10)
[2022-09-02] MEDS: Metoprolol Succinate 50 MG Tab.ER PO SCH ×2 (08:10→20:04)
[2022-09-02] MEDS: Aspirin 81 MG Tab.EC PO SCH (08:10)
[2022-09-02] MEDS: Diltiazem 60 MG Cap.SR PO SCH ×2 (08:10→20:05)
[2022-09-02] MEDS: Multivitamins with Minerals/Iron/Folic Acid/Lycopene Tab PO SCH (08:10)
[2022-09-02] MEDS: Lidocaine 5% 700 MG Patch TOP SCH (08:12)
[2022-09-02] MEDS: Nicotine 14 MG/24 Hr Patch TOP SCH (08:13)
[2022-09-02] MEDS: Remove Patch - NICOTINE TRDERM SCH (08:15)
[2022-09-02] MEDS: Insulin Lispro 100 Unit/ML 3 ML KwikPen SUBCUT SCH ×4 (08:15→21:04)
[2022-09-02] MEDS: Insulin Glargine,Hum.Rec.Anlog 100 UNIT/ML 3 ML Pen SUBCUT SCH ×2 (08:16→20:06)
[2022-09-02] MEDS: Calcium Citrate/Vitamin D3 315 MG-250 Unit Tab PO SCH (08:24)
[2022-09-02] MEDS: MELATONIN 10 MG PO SCH (21:04)
[2022-09-02] MEDS: diphenhydrAMINE 25 MG Cap PO PRN (21:04)
[2022-09-03] MEDS: Omeprazole 20 MG Cap.CR PO SCH (07:27)
[2022-09-03] MEDS: Insulin Lispro 100 Unit/ML 3 ML KwikPen SUBCUT SCH ×4 (07:40→21:15)
[2022-09-03] MEDS: Multivitamins with Minerals/Iron/Folic Acid/Lycopene Tab PO SCH (08:22)
[2022-09-03] MEDS: atorvaSTATin 10 MG Tab PO SCH (08:22)
[2022-09-03] MEDS: Furosemide 40 MG Tab PO SCH (08:22)
[2022-09-03] MEDS: Aspirin 81 MG Tab.EC PO SCH (08:22)
[2022-09-03] MEDS: Vitamin E (dl-alpha-tocopherol acetate) 400 Unit Cap PO SCH (08:22)
[2022-09-03] MEDS: Apixaban 5 MG Tab PO SCH ×2 (08:23→20:05)
[2022-09-03] MEDS: Calcium Citrate/Vitamin D3 315 MG-250 Unit Tab PO SCH (08:23)
[2022-09-03] MEDS: Lidocaine 5% 700 MG Patch TOP SCH (08:23)
[2022-09-03] MEDS: Nicotine 14 MG/24 Hr Patch TOP SCH (08:23)
[2022-09-03] MEDS: Insulin Glargine,Hum.Rec.Anlog 100 UNIT/ML 3 ML Pen SUBCUT SCH ×2 (08:24→20:07)
[2022-09-03] MEDS: Metoprolol Succinate 50 MG Tab.ER PO SCH ×2 (08:27→20:05)
[2022-09-03] MEDS: Diltiazem 60 MG Cap.SR PO SCH ×2 (08:28→19:28)
[2022-09-03] MEDS: Remove Patch - NICOTINE TRDERM SCH (08:39)
[2022-09-03] MEDS: Acetaminophen/HYDROcodone 325-5 MG Tab PO PRN (19:29)
[2022-09-03] MEDS: diphenhydrAMINE 25 MG Cap PO PRN (21:15)
[2022-09-03] MEDS: MELATONIN 10 MG PO SCH (21:15)
[2022-09-04] MEDS: Omeprazole 20 MG Cap.CR PO SCH ×2 (06:22→06:29)
[2022-09-04] MEDS: Insulin Lispro 100 Unit/ML 3 ML KwikPen SUBCUT SCH ×4 (07:33→21:02)
[2022-09-04] MEDS: Insulin Glargine,Hum.Rec.Anlog 100 UNIT/ML 3 ML Pen SUBCUT SCH ×2 (07:56→20:05)
[2022-09-04] MEDS: Metoprolol Succinate 50 MG Tab.ER PO SCH ×2 (08:43→20:04)
[2022-09-04] MEDS: Vitamin E (dl-alpha-tocopherol acetate) 400 Unit Cap PO SCH (08:43)
[2022-09-04] MEDS: Calcium Citrate/Vitamin D3 315 MG-250 Unit Tab PO SCH (08:43)
[2022-09-04] MEDS: Acetaminophen/HYDROcodone 325-5 MG Tab PO PRN ×2 (08:43→19:45)
[2022-09-04] MEDS: Aspirin 81 MG Tab.EC PO SCH (08:44)
[2022-09-04] MEDS: Apixaban 5 MG Tab PO SCH ×2 (08:44→20:04)
[2022-09-04] MEDS: Diltiazem 60 MG Cap.SR PO SCH ×2 (08:44→19:45)
[2022-09-04] MEDS: Furosemide 40 MG Tab PO SCH (08:44)
[2022-09-04] MEDS: Nicotine 14 MG/24 Hr Patch TOP SCH (08:44)
[2022-09-04] MEDS: Multivitamins with Minerals/Iron/Folic Acid/Lycopene Tab PO SCH (08:44)
[2022-09-04] MEDS: atorvaSTATin 10 MG Tab PO SCH (08:44)
[2022-09-04] MEDS: Lidocaine 5% 700 MG Patch TOP SCH (08:45)
[2022-09-04] MEDS: Remove Patch - NICOTINE TRDERM SCH (08:47)
[2022-09-04] MEDS: diphenhydrAMINE 25 MG Cap PO PRN (20:51)
[2022-09-04] MEDS: MELATONIN 10 MG PO SCH (20:51)
[2022-09-05] MEDS: Acetaminophen/HYDROcodone 325-5 MG Tab PO PRN (07:29)
[2022-09-05] MEDS: Omeprazole 20 MG Cap.CR PO SCH (07:30)
[2022-09-05] MEDS: Insulin Glargine,Hum.Rec.Anlog 100 UNIT/ML 3 ML Pen SUBCUT SCH (07:30)
[2022-09-05] MEDS: Insulin Lispro 100 Unit/ML 3 ML KwikPen SUBCUT SCH (07:31)
[2022-09-05] MEDS: Calcium Citrate/Vitamin D3 315 MG-250 Unit Tab PO SCH (08:44)
[2022-09-05] MEDS: Metoprolol Succinate 50 MG Tab.ER PO SCH (08:44)
[2022-09-05] MEDS: Vitamin E (dl-alpha-tocopherol acetate) 400 Unit Cap PO SCH (08:44)
[2022-09-05] MEDS: Multivitamins with Minerals/Iron/Folic Acid/Lycopene Tab PO SCH (08:44)
[2022-09-05] MEDS: Aspirin 81 MG Tab.EC PO SCH (08:44)
[2022-09-05] MEDS: Furosemide 40 MG Tab PO SCH (08:44)
[2022-09-05] MEDS: atorvaSTATin 10 MG Tab PO SCH (08:45)
[2022-09-05] MEDS: Diltiazem 60 MG Cap.SR PO SCH (08:45)
[2022-09-05] MEDS: Nicotine 14 MG/24 Hr Patch TOP SCH (08:45)
[2022-09-05] MEDS: Lidocaine 5% 700 MG Patch TOP SCH (08:45)
[2022-09-05] MEDS: Apixaban 5 MG Tab PO SCH (08:45)
[2022-09-05 10:13] VITALS: BP 120/47; PULSE 64
== END 2022-09-05 10:10 | DRG 948 ==
LOC: KA.MS 08-27 13:20
PROVIDERS: ADMIT Student in an Organized Health Care Education/Training Program; ATTEND Family Medicine
DX: R53.81 Other malaise (principal); I50.32 Chronic diastolic (congestive) heart failure; E46 Unspecified protein-calorie malnutrition; I25.10 Atherosclerotic heart disease of native coronary artery without angina pectoris; G47.00 Insomnia, unspecified; I11.0 Hypertensive heart disease with heart failure; E10.51 Type 1 diabetes mellitus with diabetic peripheral angiopathy without gangrene; M54.50 Low back pain, unspecified; G89.29 Other chronic pain; K59.00 Constipation, unspecified; E53.8 Deficiency of other specified B group vitamins; E78.2 Mixed hyperlipidemia; E04.1 Nontoxic single thyroid nodule; I48.0 Paroxysmal atrial fibrillation; I08.3 Combined rheumatic disorders of mitral, aortic and tricuspid valves; H54.7 Unspecified visual loss; F17.200 Nicotine dependence, unspecified, uncomplicated; Z88.6 Allergy status to analgesic agent; Z90.49 Acquired absence of other specified parts of digestive tract; Z95.1 Presence of aortocoronary bypass graft; Z79.01 Long term (current) use of anticoagulants; Z88.8 Allergy status to other drugs, medicaments and biological substances; Z79.899 Other long term (current) drug therapy; Z79.82 Long term (current) use of aspirin
CPT/HCPCS: 36415; 80048; 80053; 81001; 82947; 85025; 85027; 86140; 87210; 97110-GP; 97161-GP; 97535-GO; A9270-GY; J0696; J1815-GY; J3420

== ENCOUNTER 2023-08-18 07:33 | Emergency (ER) | payer MEDICARE, OTHER ==
[2023-08-18] MEDS: Ondansetron 4 MG/2 ML SDV IVPUSH PRN (08:13)
[2023-08-18] MEDS ORDERED: Naloxone 0.4 MG/ML SDV IVPUSH PRN ×2 (08:17→12:23)
[2023-08-18] MEDS ORDERED: Sodium Chloride 0.9% 10 ML Syringe FLUSH PRN (08:19)
[2023-08-18] MEDS: Ondansetron 4 MG/2 ML SDV ONE (08:25)
[2023-08-18 08:26] LABS: BASOPHILS ABSOLUTE AUTO 0.01 10^3/uL (0.00-0.10); BASOPHILS PERCENT AUTO 0.1 % (0.0-1.0); EOSINOPHILS ABSOLUTE AUTO 0.05 10^3/uL (0.10-0.30); EOSINOPHILS PERCENT AUTO 0.3 % (1.0-3.0); HEMATOCRIT 35.8 % (37.0-47.0); HEMOGLOBIN 11.4 g/dL (12.0-16.0); IMMATURE GRAN ABSOLUTE AUTO 0.04 10^3/uL (0.00-0.50); IMMATURE GRAN PERCENT AUTO 0.2 % (0.0-5.0); LYMPHOCYTES ABSOLUTE AUTO 0.97 10^3/uL (1.00-4.00); LYMPHOCYTES PERCENT AUTO 5.6 % (20.0-40.0); MEAN CORPUSCULAR HEMOGLOBIN 26.7 pg (27.0-31.0); MEAN CORPUSCULAR HGB CONC 31.8 g/dL (32.0-36.0); MEAN CORPUSCULAR VOLUME 83.8 fL (82.0-92.0); MEAN PLATELET VOLUME 9.3 fL (7.4-10.4); MONOCYTES ABSOLUTE AUTO 1.23 10^3/uL (0.10-0.80); MONOCYTES PERCENT AUTO 7.2 % (2.0-8.0); NEUTROPHILS ABSOLUTE AUTO 14.88 10^3/uL (2.50-7.00); NEUTROPHILS PERCENT AUTO 86.6 % (50.0-70.0); PLATELET COUNT,PLT 521 10^3/uL (150-400); RED BLOOD CELL COUNT 4.27 10^6/uL (3.80-5.50); WHITE BLOOD CELL COUNT,WBC 17.18 10^3/uL (5.00-10.00)
[2023-08-18] MEDS: diphenhydrAMINE 50 MG/ML SDV IVPUSH ONE ×2 (08:28→15:24)
[2023-08-18] MEDS: HYDROmorphone 1 MG/ML Syringe IVPUSH ONE ×3 (08:30→15:27)
[2023-08-18 08:44] LABS: ALBUMIN 2.87 g/dL (3.40-5.00); ANION GAP 15.4 mmol/L (5-15); BILIRUBIN TOTAL 0.5 mg/dL (0.2-1.0); CALCIUM 8.6 mg/dL (8.7-10.3); CARBON DIOXIDE,CO2 26.9 mmol/L (21.0-32.0); CREATININE 0.81 mg/dL (0.51-1.17); EST CRCL DRUG DOSING (CG) 56.18 mL/min; POTASSIUM,K 4.3 mmol/L (3.5-5.1)
[2023-08-18] MEDS: Iopamidol 755 Mg/ML 100 ML Bottle IV ONE (08:55)
[2023-08-18] MEDS: Sodium Chloride 0.9% 50 ML IV SCH (08:56)
[2023-08-18 11:12] LABS: APPEARANCE,URINE CLEAR (CLEAR); BILIRUBIN,URINE NEGATIVE (NEGATIVE); COLOR,URINE YELLOW (YELLOW); GLUCOSE,URINE NEGATIVE (NEGATIVE); KETONES,URINE NEGATIVE (NEGATIVE); LEUKOCYTE ESTERASE,URINE NEGATIVE (NEGATIVE); NITRITE,URINE NEGATIVE (NEGATIVE); OCCULT BLOOD,URINE TRACE-INTACT (NEGATIVE); PH,URINE 5.5 (5.0-9.0); PROTEIN,URINE 30 mg/dL (NEGATIVE); UROBILINOGEN,URINE 0.2 E.U./dL (0.2-1.0)
[2023-08-18 11:20] LABS: BACTERIA,URINE MODERATE /HPF (NONE TO FEW); EPITHELIAL CELLS,URINE OCCASIONAL /LPF; RBC,URINE 0-5 /HPF (0-5); WBC,URINE 0-5 /HPF (0-5)
[2023-08-18] MEDS: Sodium Chloride 0.9% 100 ML IV SCH (12:19)
[2023-08-18] MEDS: Piperacillin/Tazobactam 4.5 GM in Sodium Chloride 0.9% 100 ML IV ONE (12:19)
[2023-08-18] MEDS: Sodium Chloride 0.9% 100 ML ONE (12:20)
[2023-08-18] MEDS: Benzocaine 20% Topical Spray UD MUCMEM ONE (12:23)
[2023-08-18] MEDS: Sodium Chloride 0.9% 1,000 ML IV SCH (15:11)
[2023-08-18] MEDS: Ondansetron 4 MG/2 ML SDV IVPUSH ONE (15:22)
== END 2023-08-18 16:00 ==
LOC: KA.ED 07:33
DX: J18.9 Pneumonia, unspecified organism (principal); K56.41 Fecal impaction; D72.829 Elevated white blood cell count, unspecified; R33.9 Retention of urine, unspecified; R10.84 Generalized abdominal pain; F17.200 Nicotine dependence, unspecified, uncomplicated; I25.10 Atherosclerotic heart disease of native coronary artery without angina pectoris; I48.91 Unspecified atrial fibrillation; I25.2 Old myocardial infarction; J44.9 Chronic obstructive pulmonary disease, unspecified; E10.9 Type 1 diabetes mellitus without complications; Z95.1 Presence of aortocoronary bypass graft; Z79.4 Long term (current) use of insulin; Z79.899 Other long term (current) drug therapy; Z79.82 Long term (current) use of aspirin; Z79.01 Long term (current) use of anticoagulants; Z88.5 Allergy status to narcotic agent; Z88.6 Allergy status to analgesic agent; Z91.048 Other nonmedicinal substance allergy status
CPT/HCPCS: 36415; 43752; 51702; 74018; 74177; 80053; 81001; 82150; 82550; 83605; 83690; 84484; 85025; 87040; 87086; 93005; 93010; 96361; 96365; 96375; 96376; 99284; 99285-25; J1170; J1200; J2405; J2543; J3490; J7030; Q9967

== ENCOUNTER 2023-08-27 15:25 | Emergency (ER) | payer MEDICARE, OTHER ==
[2023-08-27] MEDS ORDERED: Sodium Chloride 0.9% 10 ML Syringe FLUSH PRN (15:39)
[2023-08-27 15:52] LABS: BASOPHILS ABSOLUTE AUTO 0.04 10^3/uL (0.00-0.10); BASOPHILS PERCENT AUTO 0.4 % (0.0-1.0); EOSINOPHILS ABSOLUTE AUTO 0.06 10^3/uL (0.10-0.30); EOSINOPHILS PERCENT AUTO 0.5 % (1.0-3.0); HEMATOCRIT 32.3 % (37.0-47.0); HEMOGLOBIN 10.1 g/dL (12.0-16.0); IMMATURE GRAN ABSOLUTE AUTO 0.05 10^3/uL (0.00-0.50); IMMATURE GRAN PERCENT AUTO 0.4 % (0.0-5.0); LYMPHOCYTES ABSOLUTE AUTO 0.93 10^3/uL (1.00-4.00); LYMPHOCYTES PERCENT AUTO 8.3 % (20.0-40.0); MEAN CORPUSCULAR HEMOGLOBIN 26.3 pg (27.0-31.0); MEAN CORPUSCULAR HGB CONC 31.3 g/dL (32.0-36.0); MEAN CORPUSCULAR VOLUME 84.1 fL (82.0-92.0); MEAN PLATELET VOLUME 9.3 fL (7.4-10.4); MONOCYTES ABSOLUTE AUTO 0.97 10^3/uL (0.10-0.80); MONOCYTES PERCENT AUTO 8.7 % (2.0-8.0); NEUTROPHILS ABSOLUTE AUTO 9.16 10^3/uL (2.50-7.00); NEUTROPHILS PERCENT AUTO 81.7 % (50.0-70.0); PLATELET COUNT,PLT 633 10^3/uL (150-400); RED BLOOD CELL COUNT 3.84 10^6/uL (3.80-5.50); RED CELL DISTRIBUTION WIDTH 17.2 % (11.5-14.5); WHITE BLOOD CELL COUNT,WBC 11.21 10^3/uL (5.00-10.00)
[2023-08-27] MEDS ORDERED: Naloxone 0.4 MG/ML SDV IVPUSH PRN (16:01)
[2023-08-27] MEDS: Ondansetron 4 MG/2 ML SDV IVPUSH ONE (16:04)
[2023-08-27] MEDS: diphenhydrAMINE 50 MG/ML SDV IVPUSH ONE (16:04)
[2023-08-27] MEDS: HYDROmorphone 1 MG/ML Syringe IVPUSH ONE (16:12)
[2023-08-27] MEDS: Sodium Chloride 0.9% 1,000 ML IV SCH (16:15)
[2023-08-27 16:46] LABS: ALBUMIN 2.48 g/dL (3.40-5.00); ANION GAP 17.6 mmol/L (5-15); BILIRUBIN TOTAL 0.4 mg/dL (0.2-1.0); CALCIUM 8.2 mg/dL (8.7-10.3); CARBON DIOXIDE,CO2 25.3 mmol/L (21.0-32.0); CREATININE 1.17 mg/dL (0.51-1.17); EST CRCL DRUG DOSING (CG) 38.89 mL/min; LACTIC ACID 2.9 mmol/L (0.4-2.0); POTASSIUM,K 4.9 mmol/L (3.5-5.1); PROTEIN TOTAL,TP 6.1 g/dL (6.4-8.2)
[2023-08-27] MEDS: Benzocaine 20% Topical Spray UD MUCMEM ONE (18:43)
[2023-08-27 18:46] LABS: APPEARANCE,URINE CLEAR (CLEAR); BILIRUBIN,URINE NEGATIVE (NEGATIVE); COLOR,URINE YELLOW (YELLOW); GLUCOSE,URINE 100 mg/dL (NEGATIVE); KETONES,URINE NEGATIVE (NEGATIVE); LEUKOCYTE ESTERASE,URINE NEGATIVE (NEGATIVE); NITRITE,URINE NEGATIVE (NEGATIVE); OCCULT BLOOD,URINE NEGATIVE (NEGATIVE); PH,URINE 5.5 (5.0-9.0); PROTEIN,URINE NEGATIVE (NEGATIVE); UROBILINOGEN,URINE 0.2 E.U./dL (0.2-1.0)
[2023-08-27 18:47] LABS: BACTERIA,URINE RARE /HPF (NONE TO FEW); EPITHELIAL CELLS,URINE RARE /LPF; RBC,URINE 0-5 /HPF (0-5); WBC,URINE 0-5 /HPF (0-5)
== END 2023-08-27 19:59 ==
LOC: KA.ED 15:25
DX: K56.41 Fecal impaction (principal); R33.9 Retention of urine, unspecified; J18.9 Pneumonia, unspecified organism; Z93.2 Ileostomy status; I25.2 Old myocardial infarction; I25.10 Atherosclerotic heart disease of native coronary artery without angina pectoris; J44.9 Chronic obstructive pulmonary disease, unspecified; E78.00 Pure hypercholesterolemia, unspecified; E10.9 Type 1 diabetes mellitus without complications; Z88.5 Allergy status to narcotic agent; Z88.6 Allergy status to analgesic agent; Z91.048 Other nonmedicinal substance allergy status; Z88.8 Allergy status to other drugs, medicaments and biological substances; Z79.4 Long term (current) use of insulin; Z79.82 Long term (current) use of aspirin; Z79.899 Other long term (current) drug therapy; Z90.49 Acquired absence of other specified parts of digestive tract
CPT/HCPCS: 36415; 43752; 51702; 71045; 74018; 80053; 81001; 82150; 83605; 83690; 84484; 85025; 87040; 93005; 93010; 96361; 96374; 96375; 99284; 99285-25; A9270-GY; J1170; J1200; J2405; J7030

== ENCOUNTER 2024-04-14 12:29 | Emergency (ER) | payer MEDICARE, OTHER ==
[2024-04-14] MEDS ORDERED: Sodium Chloride 0.9% 10 ML Syringe FLUSH PRN (12:48)
[2024-04-14 13:07] LABS: BASOPHILS ABSOLUTE AUTO 0.03 10^3/uL (0.00-0.10); BASOPHILS PERCENT AUTO 0.1 % (0.0-1.0); HEMATOCRIT 38.8 % (37.0-47.0); HEMOGLOBIN 12.2 g/dL (12.0-16.0); IMMATURE GRAN ABSOLUTE AUTO 0.13 10^3/uL (0.00-0.50); IMMATURE GRAN PERCENT AUTO 0.6 % (0.0-5.0); LYMPHOCYTES ABSOLUTE AUTO 0.66 10^3/uL (1.00-4.00); LYMPHOCYTES PERCENT AUTO 3.1 % (20.0-40.0); MEAN CORPUSCULAR HEMOGLOBIN 26.8 pg (27.0-31.0); MEAN CORPUSCULAR HGB CONC 31.4 g/dL (32.0-36.0); MEAN CORPUSCULAR VOLUME 85.1 fL (82.0-92.0); MEAN PLATELET VOLUME 9.8 fL (7.4-10.4); NEUTROPHILS ABSOLUTE AUTO 19.16 10^3/uL (2.50-7.00); NEUTROPHILS PERCENT AUTO 89.2 % (50.0-70.0); PLATELET COUNT,PLT 300 10^3/uL (150-400); RED BLOOD CELL COUNT 4.56 10^6/uL (3.80-5.50); RED CELL DISTRIBUTION WIDTH 20.1 % (11.5-14.5); WHITE BLOOD CELL COUNT,WBC 21.48 10^3/uL (5.00-10.00)
[2024-04-14] MEDS: Sodium Chloride 0.9% 1,000 ML IV ONE ×2 (13:07→17:35)
[2024-04-14] MEDS ORDERED: Naloxone 0.4 MG/ML SDV IVPUSH PRN (13:15)
[2024-04-14 13:21] LABS: ALANINE AMINOTRANSFERASE,ALT 16 U/L (14-63); ALBUMIN 3.02 g/dL (3.40-5.00); ALKALINE PHOSPHATASE 100 U/L (46-116); ANION GAP 13.9 mmol/L (5-15); ASPARTATE AMNIOTRANSFERASE,AST 22 U/L (15-37); BILIRUBIN TOTAL 1.3 mg/dL (0.2-1.0); BLOOD UREA NITROGEN,BUN 16 mg/dL (7-18); CALCIUM 8.1 mg/dL (8.7-10.3); CARBON DIOXIDE,CO2 29.1 mmol/L (21.0-32.0); CHLORIDE,CL 92 mmol/L (98-107); EST CRCL DRUG DOSING (CG) 43.87 mL/min; GLUCOSE RANDOM 215 mg/dL (70-140); LIPASE 8 U/L (16-77); MAGNESIUM 1.7 mg/dL (1.8-2.4); PROTEIN TOTAL,TP 6.5 g/dL (6.4-8.2); SODIUM,NA 131 mmol/L (136-145)
[2024-04-14] MEDS: HYDROmorphone 1 MG/ML Syringe IVPUSH ONE (13:24)
[2024-04-14 13:43] LABS: CORONAVIRUS COVID-19 NAA NEGATIVE (NEGATIVE); INFLUENZA A NAA NEGATIVE (NEGATIVE); INFLUENZA B NAA NEGATIVE (NEGATIVE); RESPIRATORY SYNCYTIAL VIR NAA NEGATIVE (NEGATIVE)
[2024-04-14 13:46] LABS: AMYLASE < 9 U/L (25-125); ESTIMATED GFR 58 mL/min (>=60)
[2024-04-14 13:47] LABS: APPEARANCE,URINE CLOUDY (CLEAR); BILIRUBIN,URINE NEGATIVE (NEGATIVE); COLOR,URINE YELLOW (YELLOW); GLUCOSE,URINE 100 mg/dL (NEGATIVE); KETONES,URINE TRACE mg/dL (NEGATIVE); LEUKOCYTE ESTERASE,URINE SMALL (NEGATIVE); NITRITE,URINE POSITIVE (NEGATIVE); OCCULT BLOOD,URINE TRACE-INTACT (NEGATIVE); PH,URINE 6.5 (5.0-9.0); PROTEIN,URINE 30 mg/dL (NEGATIVE); UROBILINOGEN,URINE 0.2 E.U./dL (0.2-1.0)
[2024-04-14 14:02] LABS: BACTERIA,URINE MODERATE /HPF (NONE TO FEW); EPITHELIAL CELLS,URINE RARE /LPF; WBC,URINE 50-75 /HPF (0-5)
[2024-04-14] MEDS: Sodium Chloride 0.9% 50 ML IV SCH (14:05)
[2024-04-14] MEDS: Iopamidol 755 Mg/ML 100 ML Bottle IV ONE (14:05)
[2024-04-14] MEDS: Ciprofloxacin in D5W 400 MG in Premix Bag 1 BAG IV ONE (14:38)
[2024-04-14] MEDS: metroNIDAZOLE/Normal Saline 500 MG in Premix Bag 1 BAG IV ONE (15:51)
[2024-04-14] MEDS: Nicotine 21 MG/24 Hr Patch TRDERM ONE (17:43)
== END 2024-04-14 17:56 ==
LOC: KA.ED 12:29
DX: A41.9 Sepsis, unspecified organism (principal); K94.19 Other complications of enterostomy; E87.8 Other disorders of electrolyte and fluid balance, not elsewhere classified; E87.1 Hypo-osmolality and hyponatremia; N39.0 Urinary tract infection, site not specified; I48.91 Unspecified atrial fibrillation; I25.10 Atherosclerotic heart disease of native coronary artery without angina pectoris; E78.00 Pure hypercholesterolemia, unspecified; I25.2 Old myocardial infarction; J44.9 Chronic obstructive pulmonary disease, unspecified; E10.9 Type 1 diabetes mellitus without complications; Z90.49 Acquired absence of other specified parts of digestive tract; Z79.4 Long term (current) use of insulin; Z79.899 Other long term (current) drug therapy
CPT/HCPCS: 0241U; 36415; 71045; 74177; 80053; 81001; 82150; 82270; 83605; 83690; 83735; 85025; 87040; 87086; 87088; 87186; 96361; 96365; 96367; 96375; 99285-25; A9270-GY; J0744; J1171; J1836; J3490; J7030; Q9967